=== PATIENT | male | born 1960 | race Caucasian/White ===

== ENCOUNTER 2018-09-08 09:32 | Emergency (ER) | payer OTHER ==
[~2018-09-08] VITALS: Ht 172.7 cm; Wt 100.0 kg
[2018-09-08 09:33] VITALS: BP 141/82
[2018-09-08] MEDS ORDERED: NAPR220C14 PO (10:05)
[2018-09-08] MEDS ORDERED: MELO15TA28 (10:05)
[2018-09-08] MEDS ORDERED: ATOR1TAB19 (10:05)
[2018-09-08] MEDS ORDERED: IBUP-1022 PO (10:15)
[2018-09-08] MEDS ORDERED: ROBA500T PO (10:15)
== END 2018-09-08 10:31 | disposition home or self-care (01) ==
LOC: M ED 09:32
DX: S39.002A Unspecified injury of muscle, fascia and tendon of lower back, initial encounter (principal); X50.9XXA Other and unspecified overexertion or strenuous movements or postures, initial encounter; Y92.89 Other specified places as the place of occurrence of the external cause; Y99.0 Civilian activity done for income or pay; E78.5 Hyperlipidemia, unspecified

== ENCOUNTER 2018-09-29 11:53 | Emergency (ER) | payer OTHER ==
[~2018-09-29] VITALS: Ht 172.7 cm; Wt 101.4 kg
[~2018-09-29 11:53] MED LIST: ATOR1TAB19; IBUP-1022 PO; MELO15TA28; NAPR220C14 PO; ROBA500T PO
[2018-09-29] MEDS ORDERED: MOBI4TAB PO (12:57)
[2018-09-29] MEDS ORDERED: ZANA4TAB PO (12:57)
[2018-09-29 14:03] VITALS: BP 119/76
--- NOTE | 2018-09-29 14:16 | REP ---
REASON: Pain after trauma. PRIORS: None. There is minimal anterior lipping at every level. There is mild posterior disc space narrowing at every level. There is no spondylolysis or spondylolisthesis. Small partial syndesmophytes are seen bilaterally at L2-3 and L3-4. Vertebral body height and alignment is within normal limits. IMPRESSION: Mild chronic changes as described above. Electronically Signed by Alexi Turner DO 09/29/2018 03:37 P
== END 2018-09-29 14:04 | disposition home or self-care (01) ==
LOC: M ED 11:53
DX: M54.5 Low back pain (principal); M51.36 Other intervertebral disc degeneration, lumbar region; X50.9XXA Other and unspecified overexertion or strenuous movements or postures, initial encounter; Y92.89 Other specified places as the place of occurrence of the external cause; Y93.89 Activity, other specified; Y99.0 Civilian activity done for income or pay; E78.00 Pure hypercholesterolemia, unspecified; Z79.899 Other long term (current) drug therapy

== ENCOUNTER 2019-12-28 10:24 | Emergency (ER) | payer OTHER ==
[~2019-12-28] VITALS: Ht 172.7 cm; Wt 100.7 kg
[~2019-12-28 10:24] MED LIST changes: +MOBI4TAB PO; +ZANA4TAB PO
[2019-12-28 11:31] LABS: BASO % 0.6 % (0.0-1.0); EOS % 0.6 % (0.0-3.0); HEMATOCRIT 42.5 % (42.0-52.0); HEMOGLOBIN 14.2 g/dl (13.5-17.5); LYMPH % 28.1 % (24.0-44.0); MEAN CORPUSCULAR HEMOGLOBIN 30.8 pg (27.0-33.0); MEAN CORPUSCULAR HGB CONC 33.4 g/dl (32.0-36.5); MEAN CORPUSCULAR VOLUME 92.2 fl (80.0-96.0); MONO # 0.3 10^3/uL (0.0-0.8); MONO % 4.7 % (0.0-5.0); NEUTROPHILS # 4.8 10^3/uL (1.5-8.5); NEUTROPHILS % 65.7 % (36.0-66.0); PLATELET COUNT, AUTOMATED 210 10^3/uL (150-450); RED BLOOD COUNT 4.61 10^6/uL (4.30-6.10); WHITE BLOOD COUNT 7.3 10^3/uL (4.0-10.0)
[2019-12-28 11:42] LABS: INR 0.92; PARTIAL THROMBOPLASTIN TIME 26.7 SECONDS (25.0-38.4); PROTHROMBIN TIME 12.5 SECONDS (11.8-14.0)
[2019-12-28 12:04] LABS: BLOOD UREA NITROGEN 15 MG/DL (7-18); CALCIUM LEVEL 9.4 MG/DL (8.5-10.1); CARBON DIOXIDE LEVEL 32 MEQ/L (21-32); CHLORIDE LEVEL 107 MEQ/L (98-107); CPK CREATINE PHOSPHOKINASE 105 U/L (39-308); CREATININE FOR GFR 1.06 MG/DL (0.70-1.30); GLOMERULAR FILTRATION RATE > 60.0 (>56); GLUCOSE, FASTING 102 MG/DL (70-100); SODIUM LEVEL 141 MEQ/L (136-145)
[2019-12-28 12:05] LABS: TROPONIN I < 0.02 NG/ML (< 0.10)
--- NOTE | 2019-12-28 13:04 | REPVR ---
PROCEDURE INFORMATION: Exam: MR Angiogram Head Without Contrast, Arteries Exam date and time: 12/28/2019 12:46 PM Age: 59 years old Clinical indication: Numbness; Additional info: Paresthesia/eye droop left TECHNIQUE: Imaging protocol: MR angiogram head without contrast. Exam focused on the arteries. COMPARISON: No relevant prior studies available. FINDINGS: ANTERIOR CIRCULATION: Right internal carotid artery: Intracranial segment is patent with no significant stenosis. No aneurysm. Right middle cerebral artery: No occlusion or significant stenosis. No aneurysm. Right anterior cerebral artery: No occlusion or significant stenosis. No aneurysm. Left internal carotid artery: Intracranial segment is patent with no significant stenosis. No aneurysm. Left middle cerebral artery: No occlusion or significant stenosis. No aneurysm. Left anterior cerebral artery: No occlusion or significant stenosis. No aneurysm. POSTERIOR CIRCULATION: Right vertebral artery: No occlusion or significant stenosis. No aneurysm. Left vertebral artery: No occlusion or significant stenosis. No aneurysm. Basilar artery: No occlusion or significant stenosis. No aneurysm. Right posterior cerebral artery: No occlusion or significant stenosis. No aneurysm. Left posterior cerebral artery: No occlusion or significant stenosis. No aneurysm. IMPRESSION: No stenosis or occlusion. Electronically signed by: Sharri Elizabeth On 12/28/2019 13:04:29 PM
--- NOTE | 2019-12-28 13:06 | REPVR ---
PROCEDURE INFORMATION: Exam: MR Head Without Contrast Exam date and time: 12/28/2019 12:46 PM Age: 59 years old Clinical indication: Weakness, facial; Additional info: Paresthesia/eye droop left TECHNIQUE: Imaging protocol: MR of the head without contrast. COMPARISON: No relevant prior studies available. FINDINGS: Brain: There is no extra-axial collection or intra-axial mass. There are minimal foci of T2/FLAIR white matter hyperintensity, nonspecific but typically small-vessel ischemia in this age group. There is no diffusion restriction. Ventricles: Normal. No ventriculomegaly. Bones/joints: Unremarkable. Sinuses: Normal as visualized. No acute sinusitis. Mastoid air cells: Normal as visualized. No mastoid effusion. Orbits: Unremarkable. Soft tissues: Unremarkable. IMPRESSION: No acute findings. Electronically signed by: Sharri Elizabeth On 12/28/2019 13:05:59 PM
[2019-12-28] MEDS ORDERED: ASPI81TA86 PO (13:15)
[2019-12-28 13:33] VITALS: BP 125/75
--- NOTE | 2020-01-04 15:16 | ECGEPIP ---
[facility] - ED Test Date: 2019-12-28 Pat Name: PATY BIRCH Department: Room: - Gender: Male 3D Modeler: nevaeh : [id number] Requested By: Ariadna Reeves Order Number: [id number] Reading MD: Ariadna Reeves Measurements Intervals [place] Rate: 63 P: 51 WY: 156 QRS: 46 QRSD: 90 T: 62 QT: 391 QTc: 401 Interpretive Statements SINUS RHYTHM NONSPECIFIC T-WAVE ABNORMALITY BORDERLINE ECG SEE SCANNED DOWNTIME REPORT
== END 2019-12-28 13:44 | disposition home or self-care (01) ==
LOC: M ED 10:24
DX: R51 Headache (principal); R20.2 Paresthesia of skin; E78.5 Hyperlipidemia, unspecified; Z79.899 Other long term (current) drug therapy; Z79.82 Long term (current) use of aspirin

== ENCOUNTER → 2020-08-15 | Outpatient (CLI) | payer OTHER ==
[~2020-08-15] MED LIST changes: +ASPI81TA86 PO
--- NOTE | 2020-08-15 11:04 | REP ---
INDICATION: PAIN. COMPARISON: None. TECHNIQUE: Weightbearing lateral and sunrise views of the right and left knee. FINDINGS: Generalized relatively symmetric age-related changes are appreciated including subtle increased sclerosis along the anterior patellar surface bilaterally which may reflect mild tendinopathy. IMPRESSION: Relatively symmetric age-related degenerative changes suggested. <Electronically signed by Juanito Meyer > 08/15/20 1100
--- NOTE | 2020-08-15 11:05 | REP ---
INDICATION: PAIN. COMPARISON: None. TECHNIQUE: Weightbearing AP view of the right and left knee FINDINGS: Right knee demonstrates mild medial joint space narrowing with subtle cortical irregularity and very small spurring along the medial compartment. Left knee appears essentially age-appropriate/normal. IMPRESSION: Mild degenerative changes to the right knee as above. <Electronically signed by Juanito Meyer > 08/15/20 [id number]
== END ==
LOC: M SOG 10:03
PROVIDERS: ATTEND Orthopaedic Surgery Adult Reconstructive Orthopaedic Surgery
DX: M25.569 Pain in unspecified knee (principal)

== ENCOUNTER → 2020-09-04 | Outpatient (CLI) | payer OTHER ==
--- NOTE | 2020-09-04 11:45 | REP ---
INDICATION: RT KNEE MENISCUS DERANGEMENT. COMPARISON: Radiographs 08/15/2020. TECHNIQUE: Multiple sequences obtained in the axial, coronal and sagittal planes. FINDINGS: Menisci: There is an extensive complex tear of the posterior horn of the medial meniscus extending into the body as well as slightly into the anterior horn. Lateral meniscus is intact. Cruciate ligaments: There is increased signal on T2 weighted images throughout the anterior cruciate ligament likely representing a chronic high-grade sprain or partial tear. There is a cluster of subcentimeter cystic structures along the posterior margin of the superior ACL. Collateral ligaments: Intact. Extensor mechanism/patellar retinacula: Intact. Cartilage: There is moderate diffuse chondromalacia of the medial femoral condyle and tibial plateau. There is mild global chondromalacia elsewhere, in the lateral compartment and patellofemoral joint. Bone marrow: There is mild subchondral marrow edema in the medial tibial plateau. Joint fluid: There is a small joint effusion. Popliteal region: No cyst. There is a septated cystic structure at the posteromedial joint margin consistent with a meniscal cyst, maximum craniocaudal dimension 2.0 cm, maximum AP dimension 1.5 cm and transverse 3.6 cm. IMPRESSION: There is an extensive complex tear of the posterior horn of the medial meniscus extending into the body as well as slightly into the anterior horn. Fairly large septated meniscal cyst at the posteromedial joint margin. Chronic high-grade sprain or partial tear ACL with a cluster of subcentimeter cystic structures along its posterior margin. Global chondromalacia, most significantly of the medial femoral condyle and tibial plateau. Mild subchondral marrow edema medial tibial plateau. <Electronically signed by Mekhi Montoya > 09/04/20 [id number]
== END ==
LOC: M RAD 09:38
PROVIDERS: ATTEND Orthopaedic Surgery Adult Reconstructive Orthopaedic Surgery
DX: M23.300 Other meniscus derangements, unspecified lateral meniscus, right knee (principal)

== ENCOUNTER → 2020-11-28 | Outpatient (CLI) | payer OTHER ==
[~2020-11-28] MED LIST changes: -ATOR1TAB19; +ATOR1TAB19 PO; -MELO15TA28; +MELO15TA28 PO; +VITAD400CA PO
== END ==
LOC: M LABSMTC 09:40
PROVIDERS: ATTEND Anesthesiology
DX: Z20.828 Contact with and (suspected) exposure to other viral communicable diseases (principal); Z11.59 Encounter for screening for other viral diseases

== ENCOUNTER 2020-12-02 09:18 | Day surgery (SDC) | payer OTHER ==
[~2020-12-02] VITALS: Ht 172.7 cm; Wt 99.2 kg
[~2020-12-02 09:18] MED LIST changes: +ACETAMINOPHEN 500 MG TAB PO ONE; +CelecoXIB 400 MG CAP PO ONE; +GABAPENTIN 300 MG CAP PO ONE; +LR 1,000 ML IV ONE; +ONDANSETRON 4MG/2ML VIAL IV ONE
[2020-12-02] MEDS ORDERED: fentaNYL 100 MCG/2 ML INJECTION (J3010) As Ordered ONE (10:02)
[2020-12-02] MEDS ORDERED: propofoL 200 MG/20 ML VIAL As Ordered ONE ×2 (10:02→11:50)
[2020-12-02] MEDS ORDERED: MIDAZOLAM INJ 2MG/2ML VIAL (J2250 PER 1MG) As Ordered ONE (10:03)
[2020-12-02] MEDS ORDERED: EPINEPHrine 1MG/ML INJ 30ML MD-VIAL As Ordered ONE (10:55)
[2020-12-02] MEDS ORDERED: BUPIVACAINE/EPIN 0.5% 30 ML VIAL As Ordered ONE (11:16)
[2020-12-02] MEDS ORDERED: dexameTHASONE 4 MG/ML 1ML VIAL (J1100 PER 1MG) As Ordered ONE (11:41)
[2020-12-02] MEDS ORDERED: LIDOCAINE PRES-FREE 2% 10ML AMP As Ordered ONE (11:41)
[2020-12-02] MEDS ORDERED: PHENYLephrine 500MCG 5ML (100MCG/ML) SYRINGE As Ordered ONE ×2 (11:42→12:21)
[2020-12-02] MEDS ORDERED: ePHEDrine SULFATE 25 MG/5 ML(5MG/ML) SYRINGE As Ordered ONE (11:42)
[2020-12-02] MEDS ORDERED: LR 1,000 ML IV SCH ×2 (13:10)
[2020-12-02] MEDS ORDERED: PERCOCET 5MG/325MG TAB PO PRN (13:10)
[2020-12-02] MEDS ORDERED: fentaNYL 100 MCG/2 ML INJECTION (J3010) IV PRN (13:10)
[2020-12-02] MEDS ORDERED: METOCLOPRAMIDE INJ 10MG/2ML VIAL (J2765 PER 1) IV PRN (13:10)
[2020-12-02] MEDS ORDERED: oxyCODONE 5MG TAB PO PRN (13:10)
[2020-12-02] MEDS ORDERED: ONDANSETRON 4MG/2ML VIAL IV PRN (13:10)
[2020-12-02 15:10] VITALS: BP 131/66
--- NOTE | 2020-12-02 15:29 | ROOPDOC ---
[facility] Report Of Operation Report of Operation DATE OF PROCEDURE: 12/02/20 PREPROCEDURE DIAGNOSES: Right knee meniscal tear possible osteochondral defect POSTPROCEDURE DIAGNOSES: Right knee complete radial meniscal tear midportion of the body; mild to moderate arthritic change PROCEDURE: Right knee arthroscopy Subtotal medial meniscus Debridement of scar tissue SURGEON: Pito Rose MD GLASSWARE VERIFIER: None ANESTHESIA: Spinal ESTIMATED BLOOD LOSS: Less than 10 mL mL. COMPLICATIONS: No known complications. REMARKS: Tourniquet inflated for 60 minutes. PROCEDURE NOTE: The patient was seen in the preoperative area, Consent was reviewed or obtained and the appropriate extremity was marked. DESCRIPTION OF PROCEDURE: The patient was brought to the operating room and after a surgical pause, the anesthetic was induced. The patient was appropri ately positioned supine on the operating room table. A tourniquet was applied to the appropriate thigh with appropriate padding. Side bolster was also applied to help with manipulation of the extremity during the procedure. The extremity was prepped with chlorhexidine. The patient was draped in the normal sterile fashion. After a surgical safety checklist was performed, and a timeout was performed, the tourniquet was inflated and the incision over the lateral portal site was carried out. The trocar was introduced using the blunt tip. The scope was introduced and the fluid was allowed to run until the joint was insufflated with the scope in the patellofemoral joint. A diagnostic arthroscopy was then carried out. A medial portal was established using needle localization technique. A superior lateral portal was also established using needle localization. Patellofemoral joint: Nil Patella: Grade 2 Medial gutter: Nil Lateral gutter: Nil Medial meniscus: Degenerative changes throughout with a midportion complete radial tear. This was debrided with punches, a [place] blade and the shaver utilizing both the bone cutter and the Excalibur shaver Medial femoral condyle: Grade 2 Medial tibial condyle: Grade 3 ACL: Grade 1-2 with stranding and degenerative change Lateral meniscus: Stable throughout Lateral femoral condyle: Grade 0 Lateral tibial plateau: Grade 2 with evidence of delamination Once the arthroscopic procedure was completed, the fluid was removed from the joint and the wounds were closed with 3. 0 Monocryl suture. Local anesthetic of 0.5% Marcaine with epi was instilled in the soft tissues and into the joint region. Mastisol was applied to the skin followed by Steri-Strips and Telfa and Tegaderm dressing. This was reinforced with an abdominal pad and a large Valente wrap was placed up to the level of the thigh from the foot and ankle. The patient tolerated the procedure well with no known complications. The patient will be seen for follow-up within 2 weeks, as scheduled. Postoperative instruction booklet was provided. The patient will have prescriptions for oxycodone for pain, baby aspirin for DVT prophylaxis, and senna for co nstipation. Tylenol and ibuprofen can be used as directed by bottle instructions. Prescriptions were sent to [facility] pharmacy, as requested. Thank you for referring this patient to my care, PITO ROSE MD Dec 02, 2020 15:29
== END 2020-12-02 15:15 | disposition home or self-care (01) ==
LOC: M SDC 09:18
PROVIDERS: ATTEND Orthopaedic Surgery Adult Reconstructive Orthopaedic Surgery
DX: M23.231 Derangement of other medial meniscus due to old tear or injury, right knee (principal); E78.5 Hyperlipidemia, unspecified; G47.33 Obstructive sleep apnea (adult) (pediatric); Z79.899 Other long term (current) drug therapy
CPT/HCPCS: 29881; 97116; J1100; J2250; J2370; J3010

== ENCOUNTER → 2022-05-28 | Outpatient (CLI) | payer OTHER ==
[~2022-05-28] MED LIST changes: -ACETAMINOPHEN 500 MG TAB PO ONE; -CelecoXIB 400 MG CAP PO ONE; -GABAPENTIN 300 MG CAP PO ONE; -LR 1,000 ML IV ONE; -ONDANSETRON 4MG/2ML VIAL IV ONE
[2022-05-28 12:40] LABS: BASO # 0.1 10^3/uL (0.0-0.2); BASO % 1.5 % (0.0-1.0); EOS # 0.1 10^3/uL (0.0-0.5); EOS % 0.9 % (0.0-3.0); HEMATOCRIT 46.4 % (42.0-52.0); HEMOGLOBIN 14.8 g/dl (13.5-17.5); LYMPH # 2.1 10^3/uL (1.5-5.0); LYMPH % 39.1 % (24.0-44.0); MEAN CORPUSCULAR HGB CONC 31.9 g/dl (32.0-36.5); MEAN CORPUSCULAR VOLUME 94.1 fl (80.0-96.0); MONO # 0.3 10^3/uL (0.0-0.8); MONO % 5.4 % (2.0-8.0); NEUTROPHILS # 2.8 10^3/uL (1.5-8.5); NEUTROPHILS % 52.9 % (36.0-66.0); PLATELET COUNT, AUTOMATED 212 10^3/uL (150-450); RED BLOOD COUNT 4.93 10^6/uL (4.30-6.10); WHITE BLOOD COUNT 5.4 10^3/uL (4.0-10.0)
[2022-05-28 14:12] LABS: PROSTATIC SPECIFIC AG MONITOR 0.53 NG/ML (< 4.00); THYROID STIMULATING HORMONE 2.653 uIU/ML (0.55-4.78)
[2022-05-28 14:27] LABS: ALBUMIN 4.3 G/DL (3.2-5.2); ALKALINE PHOSPHATASE 86 U/L (46-116); ALT/SGPT 42 U/L (7.0-40); AST/SGOT 61 U/L (<34); BILIRUBIN,TOTAL 0.9 MG/DL (0.3-1.2); BLOOD UREA NITROGEN 17 MG/DL (9-23); CALCIUM LEVEL 9.3 MG/DL (8.3-10.6); CARBON DIOXIDE LEVEL 29 MMOL/L (20-31); CHLORIDE LEVEL 106 MMOL/L (98-107); CHOLESTEROL LEVEL 144 MG/DL (<200); CHOLESTEROL RISK RATIO 5.45 (<5); CREATININE FOR GFR 1.02 MG/DL (0.70-1.30); GLOMERULAR FILTRATION RATE > 60.0 (>49); GLUCOSE, FASTING 107 MG/DL (74-106); HDL CHOLESTEROL 26.4 MG/DL (>40); LDL CHOLESTEROL 83.8 MG/DL (<100); NON-HDL-C 118 MG/DL; POTASSIUM SERUM 4.7 MMOL/L (3.5-5.1); SODIUM LEVEL 140 MMOL/L (136-145); TOTAL PROTEIN 7.6 G/DL (5.7-8.2); TRIGLYCERIDES LEVEL 169 MG/DL (<150)
== END ==
LOC: M WUC 08:53
PROVIDERS: ATTEND Physician Assistant
DX: R74.01 Elevation of levels of liver transaminase levels (principal); E78.2 Mixed hyperlipidemia; R35.1 Nocturia; E55.9 Vitamin D deficiency, unspecified

== ENCOUNTER 2022-09-11 11:18 | Day surgery (SDC) | payer OTHER ==
[~2022-09-11] VITALS: Ht 172.7 cm; Wt 102.5 kg
[~2022-09-11 11:18] MED LIST changes: +D3 S20002 PO; +NS 1,000 ML IV ONE
[2022-09-11] MEDS ORDERED: propofoL 200 MG/20 ML VIAL As Ordered ONE (12:22)
[2022-09-11 12:40] VITALS: BP 129/69
== END 2022-09-11 12:43 | disposition home or self-care (01) ==
LOC: M OPP 11:18
PROVIDERS: ATTEND Surgery
DX: Z12.11 Encounter for screening for malignant neoplasm of colon (principal); K64.1 Second degree hemorrhoids; K57.30 Diverticulosis of large intestine without perforation or abscess without bleeding; Z79.02 Long term (current) use of antithrombotics/antiplatelets; Z79.899 Other long term (current) drug therapy; Z87.891 Personal history of nicotine dependence

== ENCOUNTER → 2022-12-31 | Outpatient (REF) | payer OTHER ==
[~2022-12-31] MED LIST changes: -NS 1,000 ML IV ONE
[2022-12-31 17:59] LABS: ALBUMIN 4.4 G/DL (3.2-5.2); ALKALINE PHOSPHATASE 84 U/L (46-116); ALT/SGPT 36 U/L (7.0-40); AST/SGOT 54 U/L (<34); BLOOD UREA NITROGEN 16 MG/DL (9-23); CALCIUM LEVEL 9.6 MG/DL (8.3-10.6); CARBON DIOXIDE LEVEL 27 MMOL/L (20-31); CHLORIDE LEVEL 108 MMOL/L (98-107); CHOLESTEROL LEVEL 148 MG/DL (<200); CHOLESTEROL RISK RATIO 5.15 (<5); GLOMERULAR FILTRATION RATE > 60.0 (>49); GLUCOSE, FASTING 93 MG/DL (74-106); HDL CHOLESTEROL 28.7 MG/DL (>40); LDL CHOLESTEROL 88.3 MG/DL (<100); NON-HDL-C 119.3 MG/DL; POTASSIUM SERUM 4.1 MMOL/L (3.5-5.1); SODIUM LEVEL 142 MMOL/L (136-145); TOTAL PROTEIN 7.2 G/DL (5.7-8.2); TRIGLYCERIDES LEVEL 155 MG/DL (<150)
== END ==
LOC: M WUC 16:05 → M LAB REF 16:05
PROVIDERS: ATTEND Physician Assistant
DX: E78.2 Mixed hyperlipidemia (principal); R73.01 Impaired fasting glucose

== ENCOUNTER → 2023-06-03 | Outpatient (CLI) | payer OTHER ==
[2023-06-03 12:37] LABS: HEMOGLOBIN 14.8 g/dl (13.5-17.5); MEAN CORPUSCULAR HEMOGLOBIN 30.6 pg (27.0-33.0); MEAN CORPUSCULAR HGB CONC 32.9 g/dl (32.0-36.5); MEAN CORPUSCULAR VOLUME 93.2 fl (80.0-96.0); PLATELET COUNT, AUTOMATED 190 10^3/uL (150-450); RED BLOOD COUNT 4.83 10^6/uL (4.30-6.10); WHITE BLOOD COUNT 5.2 10^3/uL (4.0-10.0)
[2023-06-03 13:02] LABS: ALKALINE PHOSPHATASE 86 U/L (46-116); ALT/SGPT 40 U/L (7.0-40); AST/SGOT 47 U/L (<34); BILIRUBIN,TOTAL 0.8 MG/DL (0.3-1.2); BLOOD UREA NITROGEN 16 MG/DL (9-23); CALCIUM LEVEL 8.9 MG/DL (8.3-10.6); CARBON DIOXIDE LEVEL 31 MMOL/L (20-31); CHLORIDE LEVEL 107 MMOL/L (98-107); CHOLESTEROL LEVEL 144 MG/DL (<200); CHOLESTEROL RISK RATIO 5.49 (<5); CREATININE FOR GFR 0.98 MG/DL (0.70-1.30); GLOMERULAR FILTRATION RATE > 60.0 (>49); GLUCOSE, FASTING 115 MG/DL (74-106); HDL CHOLESTEROL 26.2 MG/DL (>40); LDL CHOLESTEROL 85.6 MG/DL (<100); NON-HDL-C 117.8 MG/DL; POTASSIUM SERUM 4.5 MMOL/L (3.5-5.1); SODIUM LEVEL 141 MMOL/L (136-145); TOTAL PROTEIN 7.1 G/DL (5.7-8.2); TRIGLYCERIDES LEVEL 161 MG/DL (<150)
== END ==
LOC: M WUC 09:11
PROVIDERS: ATTEND Physician Assistant
DX: E78.2 Mixed hyperlipidemia (principal); R35.1 Nocturia; R73.01 Impaired fasting glucose; M25.511 Pain in right shoulder

== ENCOUNTER → 2023-07-22 | Outpatient (CLI) | payer OTHER | LOC: M SOG 12:59 | PROVIDERS: ATTEND Physician Assistant | DX: M25.562 Pain in left knee (principal) ==

== ENCOUNTER → 2023-11-08 | Outpatient (REF) | payer OTHER ==
[2023-11-08 13:50] LABS: HEMOGLOBIN A1c 5.6 % (4.0-6.0)
== END ==
LOC: M LABWUC 12:32
PROVIDERS: ATTEND Physician Assistant
DX: R73.01 Impaired fasting glucose (principal)

== ENCOUNTER 2024-03-24 10:52 | Emergency (ER) | payer OTHER ==
[~2024-03-24] VITALS: Ht 170.2 cm; Wt 103.2 kg
[~2024-03-24 10:52] MED LIST changes: -ONDA-282 SL; -TIRZ5PEN3 INJ; -[UNRECOGNIZED DRUG - CODE] AD
[2024-03-24] MEDS ORDERED: TIRZ5PEN3 INJ (11:03)
[2024-03-24] MEDS ORDERED: ONDA-282 SL (11:03)
[2024-03-24 11:49] LABS: BASO % 0.2 % (0.0-1.0); EOS # 0.1 10^3/uL (0.0-0.5); EOS % 1.1 % (0.0-3.0); HEMATOCRIT 52.8 % (42.0-52.0); HEMOGLOBIN 17.4 g/dl (13.5-17.5); LYMPH # 1.1 10^3/uL (1.5-5.0); LYMPH % 24.1 % (24.0-44.0); MEAN CORPUSCULAR HEMOGLOBIN 30.2 pg (27.0-33.0); MEAN CORPUSCULAR VOLUME 91.7 fl (80.0-96.0); MONO # 0.6 10^3/uL (0.0-0.8); MONO % 13.7 % (2.0-8.0); NEUTROPHILS # 2.7 10^3/uL (1.5-8.5); NEUTROPHILS % 60.9 % (36.0-66.0); PLATELET COUNT, AUTOMATED 228 10^3/uL (150-450); RED BLOOD COUNT 5.76 10^6/uL (4.30-6.10); WHITE BLOOD COUNT 4.4 10^3/uL (4.0-10.0)
[2024-03-24 12:16] LABS: ALBUMIN 4.4 G/DL (3.2-5.2); BILIRUBIN,DIRECT 0.3 MG/DL (<0.4); TOTAL PROTEIN 7.9 G/DL (5.7-8.2)
[2024-03-24] MEDS: ACETAMINOPHEN *IV* 1,000 MG in IV 1 EA IV ONE (13:25)
[2024-03-24] MEDS ORDERED: ISOVUE-370 76% 100ML VIAL As Ordered ONE (13:31)
[2024-03-24 14:12] LABS: APPEARANCE, URINE CLEAR (CLEAR); BACTERIA, URINE AUTO NEGATIVE (NEGATIVE); BILIRUBIN, URINE AUTO NEGATIVE (NEGATIVE); BLOOD, URINE BLOOD NEGATIVE (NEGATIVE); COLOR, URINE YELLOW (YELLOW); GLUCOSE, URINE (UA) AUTO NEGATIVE (NEGATIVE); KETONE, URINE AUTO TRACE mg/dL (NEGATIVE); LEUKOCYTE ESTERASE, URINE AUTO NEGATIVE (NEGATIVE); MUCUS, URINE SMALL (NEGATIVE); NITRITE, URINE AUTO NEGATIVE (NEGATIVE); PROTEIN, URINE AUTO NEGATIVE (NEGATIVE); RBC, URINE AUTO 0 /HPF (0-3); SPECIFIC GRAVITY URINE AUTO 1.026 (1.002-1.035); SQUAMOUS EPITHELIAL CELL UR AU 0 /HPF (0-6); UROBILINOGEN, URINE AUTO 0.2 mg/dL (0.0-2.0); WBC, URINE AUTO 1 /HPF (0-3)
[2024-03-24] MEDS ORDERED: [UNRECOGNIZED DRUG - CODE] AD (15:04)
[2024-03-24] MEDS ORDERED: HOME MED LIST COMPLETE! XX SCH (15:05)
[2024-03-24 15:30] VITALS: BP 116/65; O2SAT 96
[2024-03-24 15:44] VITALS: TEMP 97.6
== END 2024-03-24 15:45 | disposition home or self-care (01) ==
LOC: M ED 10:52
DX: K52.9 Noninfective gastroenteritis and colitis, unspecified (principal); G47.33 Obstructive sleep apnea (adult) (pediatric); E78.5 Hyperlipidemia, unspecified; M19.90 Unspecified osteoarthritis, unspecified site; Z79.02 Long term (current) use of antithrombotics/antiplatelets; Z79.899 Other long term (current) drug therapy
CPT/HCPCS: 36415; 74177; 80047; 80076; 81001; 83690; 85025; 99284; Q9967

== ENCOUNTER → 2024-03-24 | Outpatient (CLI) | payer OTHER ==
[~2024-03-24] MED LIST changes: +ONDA-282 SL; +TIRZ5PEN3 INJ; +[UNRECOGNIZED DRUG - CODE] AD
[2024-03-24 11:40] LABS: HEMATOCRIT 50.8 % (42.0-52.0); HEMOGLOBIN 16.9 g/dl (13.5-17.5); MEAN CORPUSCULAR HEMOGLOBIN 30.3 pg (27.0-33.0); MEAN CORPUSCULAR HGB CONC 33.3 g/dl (32.0-36.5); PLATELET COUNT, AUTOMATED 213 10^3/uL (150-450); RED BLOOD COUNT 5.58 10^6/uL (4.30-6.10); WHITE BLOOD COUNT 4.7 10^3/uL (4.0-10.0)
[2024-03-24 11:46] LABS: LIPASE 33 U/L (12-53)
[2024-03-24 11:48] LABS: ALBUMIN 4.2 G/DL (3.2-5.2); ALKALINE PHOSPHATASE 95 U/L (40-129); ALT/SGPT 23 U/L (7.0-40); AST/SGOT 40 U/L (<34); BLOOD UREA NITROGEN 15 MG/DL (9-23); CALCIUM LEVEL 9.5 MG/DL (8.3-10.6); CARBON DIOXIDE LEVEL 27 MMOL/L (20-31); CHLORIDE LEVEL 111 MMOL/L (98-107); CREATININE FOR GFR 1.15 MG/DL (0.70-1.30); GLOMERULAR FILTRATION RATE > 60.0 (>49); GLUCOSE, FASTING 117 MG/DL (74-106); POTASSIUM SERUM 4.7 MMOL/L (3.5-5.1); SODIUM LEVEL 141 MMOL/L (136-145); TOTAL PROTEIN 7.5 G/DL (5.7-8.2)
== END ==
LOC: M LAB 10:31
PROVIDERS: ATTEND Student in an Organized Health Care Education/Training Program
DX: R10.30 Lower abdominal pain, unspecified (principal)

== ENCOUNTER → 2024-05-11 | Outpatient (CLI) | payer OTHER ==
[~2024-05-11] MED LIST changes: +ONDA-282 SL; +TIRZ5PEN3 INJ; +[UNRECOGNIZED DRUG - CODE] AD
[2024-05-11 11:56] LABS: APPEARANCE, URINE CLEAR (CLEAR); BACTERIA, URINE AUTO 1+ (NEGATIVE); BILIRUBIN, URINE AUTO NEGATIVE (NEGATIVE); BLOOD, URINE BLOOD NEGATIVE (NEGATIVE); COLOR, URINE YELLOW (YELLOW); GLUCOSE, URINE (UA) AUTO NEGATIVE (NEGATIVE); KETONE, URINE AUTO NEGATIVE (NEGATIVE); LEUKOCYTE ESTERASE, URINE AUTO NEGATIVE (NEGATIVE); MUCUS, URINE SMALL (NEGATIVE); NITRITE, URINE AUTO NEGATIVE (NEGATIVE); PROTEIN, URINE AUTO NEGATIVE (NEGATIVE); RBC, URINE AUTO 1 /HPF (0-3); SPECIFIC GRAVITY URINE AUTO 1.018 (1.002-1.035); SQUAMOUS EPITHELIAL CELL UR AU 0 /HPF (0-6); UROBILINOGEN, URINE AUTO 0.2 mg/dL (0.0-2.0); WBC, URINE AUTO 1 /HPF (0-3)
[2024-05-11 12:27] LABS: ALBUMIN 4.3 G/DL (3.2-5.2); ALKALINE PHOSPHATASE 88 U/L (40-129); ALT/SGPT 36 U/L (7.0-40); AST/SGOT 47 U/L (<34); BLOOD UREA NITROGEN 14 MG/DL (9-23); CALCIUM LEVEL 9.1 MG/DL (8.3-10.6); CARBON DIOXIDE LEVEL 30 MMOL/L (20-31); CHLORIDE LEVEL 105 MMOL/L (98-107); CHOLESTEROL LEVEL 167 MG/DL (<200); CHOLESTEROL RISK RATIO 5.66 (<5); CREATININE FOR GFR 0.95 MG/DL (0.70-1.30); GLOMERULAR FILTRATION RATE > 60.0 (>49); HDL CHOLESTEROL 29.5 MG/DL (>40); LDL CHOLESTEROL 100.5 MG/DL (<100); NON-HDL-C 137.5 MG/DL; POTASSIUM SERUM 4.8 MMOL/L (3.5-5.1); SODIUM LEVEL 144 MMOL/L (136-145); TOTAL PROTEIN 7.4 G/DL (5.7-8.2); TRIGLYCERIDES LEVEL 185 MG/DL (<150)
[2024-05-11 12:28] LABS: PROSTATIC SPECIFIC AG MONITOR 0.58 NG/ML (< 4.00)
[2024-05-11 12:32] LABS: THYROID STIMULATING HORMONE 2.961 uIU/ML (0.55-4.78)
[2024-05-11 12:53] LABS: HEMOGLOBIN A1c 5.5 % (4.0-6.0)
[2024-05-12 06:45] LABS: GLUCOSE, FASTING 103 MG/DL (74-106)
== END ==
LOC: M WUC 08:35
PROVIDERS: ATTEND Physician Assistant
DX: E78.2 Mixed hyperlipidemia (principal); R73.01 Impaired fasting glucose; R35.1 Nocturia; R74.01 Elevation of levels of liver transaminase levels

== ENCOUNTER → 2024-11-16 | Outpatient (CLI) | payer OTHER ==
[2024-11-16 12:20] LABS: PLATELET COUNT, AUTOMATED 204 10^3/uL (150-450)
[2024-11-16 12:44] LABS: ALT/SGPT 40.0 U/L (7.0-40); AST/SGOT 56.0 U/L (<34); CALCIUM LEVEL 9.1 MG/DL (8.3-10.6); CARBON DIOXIDE LEVEL 30.0 MMOL/L (20-31); CHLORIDE LEVEL 105.0 MMOL/L (98-107); CHOLESTEROL LEVEL 169.0 MG/DL (<200); CHOLESTEROL RISK RATIO 5.52 (<5); CREATININE FOR GFR 1.0 MG/DL (0.70-1.30); GLOMERULAR FILTRATION RATE 84.6 (>49); LDL CHOLESTEROL 97.6 MG/DL (<100); NON-HDL-C 138.4 MG/DL; POTASSIUM SERUM 4.7 MMOL/L (3.5-5.1); SODIUM LEVEL 144.0 MMOL/L (136-145); TRIGLYCERIDES LEVEL 204.0 MG/DL (<150)
== END ==
LOC: M WUC 09:05
PROVIDERS: ATTEND Physician Assistant
DX: E78.2 Mixed hyperlipidemia (principal); R73.01 Impaired fasting glucose; G47.33 Obstructive sleep apnea (adult) (pediatric); Z80.0 Family history of malignant neoplasm of digestive organs